=== PATIENT | male | born 1990 | race Caucasian/White ===

== ENCOUNTER 2021-03-03 19:18 | Emergency (ER) | payer OTHER ==
[~2021-03-03] VITALS: Ht 185.4 cm; Wt 115.9 kg
--- NOTE | 2021-03-03 20:40 | PHYS DOC ---
Past History Additional Past Medical Histor: seasonal allergies (FAISAL ORNELAS) Past Surgical History: No Surgical History (FAISAL ORNELAS) Alcohol Use: None (FASIAL ORNELAS) Attending Co-Sign The patient was seen and interviewed as well as examined at the bedside. The chart was reviewed. The case was discussed. Agree with the plan of care. (JAMES DICKEY DO) General Adult EDM: Chief Complaint: CONGESTION HPI: HPI: Patient is a 30 year old male with history of seasonal allergies who presents with 4-day history of runny/stuffy nose and a cough at night. Patient states that of the past 4 days, at least 2 of them he has experienced nasal congestion and a cough at night. He states he coughs when he inspires deeply before bed. His symptoms are worse when he lays down flat. Patient denies any fever, chills, sore throat, ear pain, chest pain, palpitations, sputum production. Patient was diagnosed with COVID-19 in December 2020. Since then, he denies sick contacts. (FAISAL ORNELAS) Review of Systems: Review of Systems: 12 systems reviewed. ROS negative except as mentioned in HPI. (FAISAL ORNELAS) Allergies: Allergies: Allergies Coded Allergies Type Severity Reaction Last Updated Verified cat dander Allergy Intermediate 03/03/21 Yes Uncoded Allergies Type Severity Reaction Last Updated Verified cats Allergy Unknown 03/03/21 (FAISAL ORNELAS) Physical Exam: PE: Constitutional: Well developed, well nourished, no acute distress, non-toxic appearance. HENT: Normocephalic, atraumatic, bilateral external ears without deformity or discharge, bilateral tympanic membranes pearly rice without fluid level or bulging, oropharynx moist, postnasal drip appreciated, nose without deformity or discharge, bilateral turbinates erythematous and slightly swollen. Eyes: PERRLA, EOMI, conjunctiva normal, no discharge. Cardiovascular: Heart rate regular rhythm, no murmur. Lungs & Thorax: Bilateral breath sounds clear to auscultation Skin: Warm, dry, no erythema, no rash. (FAISAL ORNELAS) Current Patient Data: Labs: Laboratory Tests Test 03/03/21 21:09 Influenza Type A (Rapid) Negative (NEGATIVE) Influenza Type B (Rapid) Negative (NEGATIVE) Vital Signs: Vital Signs Date Time Temp Pulse Resp B/P (MAP) Pulse Ox O2 Delivery O2 Flow Rate FiO2 03/03/21 22:35 75 16 150/88 (108) 98 Room Air 03/03/21 19:35 98.3 77 16 158/94 (115) 98 Room Air (FAISAL ORNELAS) Heart Score: C/O Chest Pain: No (FAISAL ORNELAS) Course & Med Decision Making: Course & Med Decision Making Pertinent Labs and Imaging studies reviewed. (See chart for details) Patient is an otherwise healthy 30-year-old male with history of seasonal allergies who presents with congestion and nighttime cough. Swabs will be obtained for flu and COVID. Rapid flu test negative. Covid results would not be available until tomorrow. Counseled patient on supportive treatment for viral illness. He should use coolmist humidifier at night, take Mucinex and use an albuterol inhaler at night to help with his cough. Albuterol provided in the department, as all the pharmacies locally are closed. He should quarantine until tomorrow, when his COVID-19 results become available. Patient understands and is agreeable to discharge plan. (FAISAL ORNELAS) Dragon Disclaimer: Dragon Disclaimer: This electronic medical record was generated, in whole or in part, using a voice recognition dictation system. (FAISAL ORNELAS) Departure Departure: Impression: Primary Impression: Upper respiratory infection, acute Additional Impression: History of seasonal allergies Disposition: 01 HOME / SELF CARE / HOMELESS Condition: STABLE Referrals: PCP,KATHERINE (PCP) Patient Instructions: Upper Respiratory Infection, Adult, [id number] Additional Instructions: As discussed, you should use your inhaler before bed and a cool mist humidifier by the bedside while you sleep. Additionally, you may take [id number] Mucinex (guaifenesin) to aid in decongestion. Please return to the emergency department if your symptoms do not improve or you develop new symptoms. FAISAL ORNELAS Mar 03, 2021 20:40 JAMES DICKEY DO Mar 04, 2021 11:56
[2021-03-03 21:50] LABS: INFLUENZA A PATIENT NEGATIVE (NEGATIVE); INFLUENZA B PATIENT NEGATIVE (NEGATIVE)
[2021-03-03] MEDS ORDERED: ALBUTEROL SULFATE 8GM INHALER. INH ONE (22:00)
[2021-03-03 22:35] VITALS: BP 150/88
== END 2021-03-03 22:36 | disposition home or self-care (01) ==
LOC: ER 19:18
DX: J06.9 Acute upper respiratory infection, unspecified (principal); Z88.8 Allergy status to other drugs, medicaments and biological substances; Z20.822 Contact with and (suspected) exposure to COVID-19
CPT/HCPCS: 87804; 99283; C9803; U0003

== ENCOUNTER 2021-03-08 12:34 | Emergency (ER) | payer OTHER ==
[~2021-03-08] VITALS: Ht 185.4 cm; Wt 119.0 kg
[2021-03-08 13:17] VITALS: BP 153/104
--- NOTE | 2021-03-08 13:29 | PHYS DOC ---
Past History Additional Past Medical Histor: seasonal allergies Past Surgical History: No Surgical History Alcohol Use: None Adult General Chief Complaint Chief Complaint: CONGESTION HPI HPI Patient is a healthy fully vaccinated 30-year-old male presenting for allergy symptoms. This is an acute on chronic issue. Reports symptoms have been ongoing since he was last seen here 48 hours ago. Ports he has chronic issues with his sinuses that worsen when he relocated to the current area, also notes that it is worse with cats and he is currently living in a household with cats. States he has not had any fever but had ongoing symptoms such as eye itchiness, redness, tearing, nasal drainage, and coughing on deep inspiration. He has been afebrile. He has no other medical conditions and takes no other medications on a daily basis prescribed by primary care physician. He has been using a daily antihistamine, Flonase, and previously prescribed albuterol inhaler with mild relief in symptoms. He also reports starting Mucinex which he thinks has been exacerbating his cough. He does admit he is fully vaccinated against COVID-19 with prior infection approximately 1 month ago Review of Systems Review of Systems Fourteen body systems of review of systems have been reviewed. See HPI for pertinent positives and negative responses, other stewart all other systems are negative, non-pertinent or non-contributory Allergies Allergies Allergies Coded Allergies Type Severity Reaction Last Updated Verified cat dander Allergy Intermediate 03/03/21 Yes Uncoded Allergies Type Severity Reaction Last Updated Verified cats Allergy Unknown 03/03/21 Physical Exam Physical Exam General: Appears well, non toxic, and comfortable Skin: Warm, dry. Normal for ethnicity. HEENT: Atraumatic. PERRLA. Rhinorrhea and congestion. Nasal turbinates boggy b/l. Moist mucous membranes. Uvula midline. Maintaining secretions. No phonation changes. Conjunctival injection bilaterally Neck: Trachea midline. Normal ROM. No stridor. Respiratory: Normal WOB. CTAB w/o w/r/r. No tachypnea. Cardiovascular: Regular rate and rhythm. Normal peripheral perfusion. Abdomen: Soft. Non tender. No distension. Back: Normal ROM. Musculoskeletal: No swelling or deformity. Neuro: Alert and oriented x 4. MAEE. Lymph: No cervical LAD. Psych: Normal affect and mood. Current Patient Data Vital Signs Vital Signs Date Time Temp Pulse Resp B/P (MAP) Pulse Ox O2 Delivery O2 Flow Rate FiO2 03/08/21 13:17 98.4 64 16 153/104 (120) 98 EKG EKG [] Radiology/Procedures Radiology/Procedures [] Heart Score C/O Chest Pain: No Risk Factors: Risk Factors: DM, Current or recent (<one month) smoker, HTN, HLP, family history of CAD, obesity. Risk Scores: Risk Factors: DM, Current or recent (<one month) smoker, HTN, HLP, family history of CAD, obesity. Course & Med Decision Making Course & Med Decision Making ABCs unremarkable HPI and physical exam nonconcerning for any emergent or surgical issues Patient suffering from typical allergy symptoms. States he has history of seasonal allergies but later admits that he recently had a cat brought into his home that has been living with him which he feels has been exacerbating his s ymptoms. Has history of allergies to cats in the past I advised continued supportive care practices, avoidance and/or removal of cat from house if at all possible and need to discontinue Mucinex in absence of any productive cough or concerning lung pathology. Dragon Disclaimer Dragon Disclaimer This electronic medical record was generated, in whole or in part, using a voice recognition dictation system. Departure Departure: Impression: Primary Impression: Multiple environmental allergies Disposition: HOME / SELF CARE / HOMELESS Condition: STABLE Referrals: PCPKATHERINE (PCP) Additional Instructions: As discussed prior to ER departure, your vitals and physical exam were nonconcerning for any emergent or surgical issues. You are likely suffering from seasonal allergies versus allergy to cat. You should discontinue Mucinex otherwise continue all previously prescribed medications. If at all possible please avoid contact with cat, removed From household and/or incorporate air purifier's into the household. 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 Any concerning signs or symptoms present prior to outpatient follow-up please do not hesitate to come back for repeat evaluation. Is a pleasure to take care of you and I wish you the best going forward BREN MACHCUA DO Mar 08, 2021 13:29
== END 2021-03-08 13:45 | disposition home or self-care (01) ==
LOC: ER 12:34
DX: T78.40XA Allergy, unspecified, initial encounter (principal); Z88.8 Allergy status to other drugs, medicaments and biological substances; X58.XXXA Exposure to other specified factors, initial encounter
CPT/HCPCS: 99282

== ENCOUNTER → 2021-03-21 | Outpatient (CLI) | payer OTHER ==
[2021-03-08 13:17] VITALS: BP 153/104
--- NOTE | 2021-03-21 14:50 | RAD ---
PA and lateral chest x-rays HISTORY: Shortness of breath. Covid. FINDINGS: Heart size normal. Mediastinal silhouette is normal. No pneumothorax, pulmonary opacities o r pleural effusions. Bones are unremarkable. IMPRESSION: No acute process. Electronically signed by: Carmelo Cameron MD (03/21/2021 2:47 PM) [id number]
== END ==
LOC: RAD 13:44
PROVIDERS: ATTEND Nurse Practitioner Family
DX: R06.02 Shortness of breath (principal)
CPT/HCPCS: 71046